=== PATIENT | female | born 1960 | race Caucasian/White ===

== ENCOUNTER 2023-06-15 16:11 | Emergency (ER) | payer OTHER ==
[~2023-06-15] VITALS: Ht 160 cm; Wt 108.0 kg
[~2023-06-15 16:11] MED LIST: ASPIRIN81 MG PO; ATORVASTATIN CA20 MG PO; GLIPIZIDE10 M3 PO; LEVOTHYROXIN88 MC1 PO; NITROSTAT0.4 MG SL; ZOLOFT100 MG PO
[2023-06-15 16:57] VITALS: BP 133/111
[2023-06-15 17:03] VITALS: BP 106/55
[2023-06-15 17:16] VITALS: BP 107/52
[2023-06-15 17:30] VITALS: BP 107/58
[2023-06-15 18:39] LABS: BASO% 1.2 % (0-3); EOS% 1.8 % (0-8); HEMATOCRIT 42.3 % (37.0-47.0); HEMOGLOBIN 13.9 g/dl (12.0-16.0); IMMATURE GRANULOCYTES 0.4 % (0.0-5.0); LYMPH% 28.6 % (15-41); MEAN CELL VOLUME 88.1 fL CALC (80.0-100.0); MEAN CORPUSCULAR HGB CONC 32.9 g/dL CAL (32.0-36.0); MONO% 10.9 % (2-13); NEUT# 4.34 thou/uL (2.00-7.15); NEUT% 57.1 % (42-76); RED BLOOD COUNT 4.8 mill/uL (4.20-5.60); RED CELL DISTRI WIDTH 12.9 % (11.5-15.5)
[2023-06-15 18:42] LABS: ALBUMIN 4.5 g/dL (3.2-5.0); ALKALINE PHOSPHATASE 138 u/l (38-126); ANION GAP 14 (6-22 (CALC)); BILIRUBIN, TOTAL 0.4 mg/dL (0.02-1.3); BUN 21 mg/dL (8-23); BUN/CREATININE RATIO 27 (12-20 (CALC)); CARBON DIOXIDE 25 mmol/l (22-30); CHLORIDE 101 mmol/l (95-108); CREATININE 0.8 mg/dL (0.5-1.0); GFR FOR AFR.AMER. > 60 ML/MIN (>=60 (CALC)); GFR OTHER RACES > 60 ML/MIN (>=60 (CALC)); POTASSIUM 4.3 mmol/l (3.5-5.1); SGOT/AST 28 u/l (9-36); SODIUM 135 mmol/l (137-146); TOTAL PROTEIN 7.1 g/dL (6.3-8.2)
[2023-06-15 19:12] VITALS: BP 140/75
[2023-06-15 20:00] VITALS: BP 119/51
== END 2023-06-15 20:07 | disposition home or self-care (01) | DRG 313 ==
LOC: ED 16:11
PROVIDERS: Emergency Medicine
DX: R07.9 Chest pain, unspecified (principal); I10 Essential (primary) hypertension; E11.9 Type 2 diabetes mellitus without complications; Z79.84 Long term (current) use of oral hypoglycemic drugs; Z20.822 Contact with and (suspected) exposure to COVID-19